=== PATIENT | male | born 1940 | race African-American/Black ===

== ENCOUNTER 2023-06-12 13:07 | Inpatient (IN) | payer OTHER, BC ==
[2023-06-12 16:12] LABS: BASO % 0.5 % (0-2.0); EOS % 0.5 % (0-4.5); HEMATOCRIT 30.2 % (35.4-49); HEMOGLOBIN 9.5 GM/dL (11.7-16.9); LYMPH % 24.3 % (8-40); MCH 22.7 pg (25.7-33.7); MCHC 31.6 g/dl (32.0-35.9); MEAN CELL VOLUME 71.8 fl (80-96); MEAN PLT VOLUME 9.8 fl (7.5-11.1); MONO % 4.6 % (3.8-10.2); NEUT % 70.1 % (42.8-82.8); PLATELET COUNT 236 10^3/uL (134-434); RDW 15.9 % (11.9-15.9); WHITE BLOOD COUNT 5.8 K/mm3 (4.0-10.0)
[2023-06-12] MEDS: SODIUM CHLORIDE 0.9% 500 ML INFUS.BAG IV ONE (16:15)
[2023-06-12 16:28] LABS: POTASSIUM 4.4 mmol/L (3.5-5.1)
[2023-06-12 16:31] LABS: ALBUMIN 3.1 g/dl (3.4-5.0); BLOOD UREA NITROGEN 17.8 mg/dL (7-18); CALCIUM 9.8 mg/dL (8.5-10.1); MAGNESIUM 1.7 mg/dL (1.8-2.4)
[2023-06-12 16:34] LABS: CREATININE 0.7 mg/dL (0.55-1.3); PHOSPHOROUS 2.8 mg/dL (2.5-4.9)
[2023-06-12 16:36] LABS: BILIRUBIN,TOTAL 0.4 mg/dL (0.2-1); TOT PROT 6.6 g/dl (6.4-8.2)
[2023-06-12 16:43] LABS: LACTIC ACID 2.4 mmol/L (0.4-2.0)
[2023-06-12 18:39] LABS: URINE APPEARANCE CLEAR; URINE BILIRUBIN NEGATIVE (NEGATIVE); URINE COLOR YELLOW; URINE GLUCOSE (UA) NEGATIVE (NEGATIVE); URINE KETONE TRACE (NEGATIVE); URINE LEUK ESTERASE NEGATIVE (NEGATIVE); URINE NITRITE NEGATIVE (NEGATIVE); URINE PROTEIN NEGATIVE (NEGATIVE); URINE UROBILINOGEN 0.2 mg/dL (0.2-1.0)
[2023-06-12] MEDS ORDERED: MAGNESIUM 1GM/D5W - 1 GM/100 ML IVPB IVPB ONE (20:30)
[2023-06-12] MEDS: MAGNESIUM 1GM/D5W - 1 GM/100 ML IVPB IVPB ONE (21:34)
[2023-06-12] MEDS: INSULIN ASPART SLIDING SCALE (NOVOLOG) 1 VIAL SQ SCH (22:20)
[2023-06-12 22:47] LABS: RETICULOCYTES 0.58 % (0.5-1.5)
[2023-06-12] MEDS: SODIUM CHLORIDE 1,000 ML IV SCH (23:32)
[2023-06-12] MEDS: REMDESIVIR 200 MG in SODIUM CHLORIDE 250 ML IVPB ONE (23:33)
[2023-06-13 07:21] LABS: POTASSIUM 3.9 mmol/L (3.5-5.1)
[2023-06-13 07:24] LABS: BASO % 0.6 % (0-2.0); EOS % 1.2 % (0-4.5); HEMATOCRIT 33.2 % (35.4-49); HEMOGLOBIN 10.4 GM/dL (11.7-16.9); LYMPH % 31.4 % (8-40); MCH 22.7 pg (25.7-33.7); MCHC 31.5 g/dl (32.0-35.9); MEAN CELL VOLUME 72.2 fl (80-96); MEAN PLT VOLUME 10.4 fl (7.5-11.1); MONO % 5.8 % (3.8-10.2); PLATELET COUNT 235 10^3/uL (134-434); RBC 4.59 M/mm3 (4.00-5.60); RDW 16.1 % (11.9-15.9); WHITE BLOOD COUNT 5.7 K/mm3 (4.0-10.0)
[2023-06-13 07:25] LABS: BLOOD UREA NITROGEN 12.9 mg/dL (7-18); MAGNESIUM 1.7 mg/dL (1.8-2.4)
[2023-06-13 07:26] LABS: ALBUMIN 3.3 g/dl (3.4-5.0); CALCIUM 8.8 mg/dL (8.5-10.1)
[2023-06-13 07:28] LABS: PHOSPHOROUS 2.8 mg/dL (2.5-4.9)
[2023-06-13 07:29] LABS: CREATININE 0.7 mg/dL (0.55-1.3)
[2023-06-13 07:30] LABS: BILIRUBIN,TOTAL 0.4 mg/dL (0.2-1); TOT PROT 6.4 g/dl (6.4-8.2)
[2023-06-13 07:37] LABS: CHOLESTEROL 99 mg/dL (50-200)
[2023-06-13 07:38] LABS: LDL CHOLESTEROL (ONLY SJRH) 51 mg/dL (5-100)
[2023-06-13 07:40] LABS: HDL CHOLESTEROL 44 mg/dL (40-60)
[2023-06-13] MEDS: ENOXAPARIN NA (PORCINE) 40 MG/0.4 ML DISP.SYRIN SQ SCH (11:04)
[2023-06-13] MEDS ORDERED: MAGNESIUM SULFATE IN WATER 2 GM/50 ML IVPB IVPB ONE (16:20)
[2023-06-13] MEDS: REMDESIVIR 100 MG in SODIUM CHLORIDE 250 ML IVPB SCH (16:28)
[2023-06-13] MEDS: MAGNESIUM SULF 50% (8.12 MEQ/2 ML-1 GM VIAL) IVPB ONE (16:30)
[2023-06-13] MEDS ORDERED: INSULIN (NOVOLOG) ASPART 100 UNITS/ML 10ML VIAL ONE (17:18)
[2023-06-13 19:01] VITALS: BMI 22.1
[2023-06-14 08:54] LABS: BASO % 1.2 % (0-2.0); EOS % 1.4 % (0-4.5); HEMOGLOBIN 9.5 GM/dL (11.7-16.9); LYMPH % 37.2 % (8-40); MCH 22.7 pg (25.7-33.7); MCHC 31.7 g/dl (32.0-35.9); MEAN CELL VOLUME 71.7 fl (80-96); MEAN PLT VOLUME 10.4 fl (7.5-11.1); MONO % 8.2 % (3.8-10.2); PLATELET COUNT 212 10^3/uL (134-434); RBC 4.19 M/mm3 (4.00-5.60); WHITE BLOOD COUNT 4.5 K/mm3 (4.0-10.0)
[2023-06-14] MEDS: MEMANTINE HCL 10 MG TABLET (FP) PO SCH (10:26)
[2023-06-14 10:31] LABS: ALBUMIN 2.9 g/dl (3.4-5.0); BLOOD UREA NITROGEN 10.6 mg/dL (7-18); CALCIUM 8.8 mg/dL (8.5-10.1); MAGNESIUM 1.8 mg/dL (1.8-2.4)
[2023-06-14 10:34] LABS: CREATININE 0.6 mg/dL (0.55-1.3); PHOSPHOROUS 2.8 mg/dL (2.5-4.9)
[2023-06-14 10:39] LABS: BILIRUBIN,TOTAL 0.4 mg/dL (0.2-1)
[2023-06-14] MEDS: SODIUM CHLORIDE 1,000 ML IV SCH (22:27)
[2023-06-14] MEDS: BACITRACIN ZINC 15 GM TUBE TOPICAL OINTMENT TP SCH (22:28)
[2023-06-15 08:23] LABS: BASO % 0.5 % (0-2.0); HEMATOCRIT 28.8 % (35.4-49); HEMOGLOBIN 9.3 GM/dL (11.7-16.9); LYMPH % 34.3 % (8-40); MCH 22.9 pg (25.7-33.7); MCHC 32.2 g/dl (32.0-35.9); MEAN CELL VOLUME 71.2 fl (80-96); MEAN PLT VOLUME 10.7 fl (7.5-11.1); MONO % 8.6 % (3.8-10.2); NEUT % 55.6 % (42.8-82.8); PLATELET COUNT 200 10^3/uL (134-434); RBC 4.05 M/mm3 (4.00-5.60); RDW 16.3 % (11.9-15.9); WHITE BLOOD COUNT 4.6 K/mm3 (4.0-10.0)
[2023-06-15 08:53] LABS: CALCIUM 8.5 mg/dL (8.5-10.1)
[2023-06-15 08:54] LABS: BLOOD UREA NITROGEN 11.9 mg/dL (7-18)
[2023-06-15 08:56] LABS: CREATININE 0.6 mg/dL (0.55-1.3)
[2023-06-15 08:58] LABS: BILIRUBIN,TOTAL 0.4 mg/dL (0.2-1); TOT PROT 5.8 g/dl (6.4-8.2)
[2023-06-15 09:02] LABS: CHOLESTEROL 82 mg/dL (50-200); LDL CHOLESTEROL (ONLY SJRH) 33 mg/dL (5-100)
[2023-06-15 09:04] LABS: HDL CHOLESTEROL 49 mg/dL (40-60)
[2023-06-16 08:06] LABS: ALBUMIN 2.8 g/dl (3.4-5.0); CALCIUM 8.3 mg/dL (8.5-10.1)
[2023-06-16 08:07] LABS: BASO % 0.5 % (0-2.0); EOS % 1.9 % (0-4.5); HEMATOCRIT 27.6 % (35.4-49); HEMOGLOBIN 8.8 GM/dL (11.7-16.9); LYMPH % 42.1 % (8-40); MCH 22.8 pg (25.7-33.7); MCHC 31.8 g/dl (32.0-35.9); MEAN CELL VOLUME 71.7 fl (80-96); MEAN PLT VOLUME 10.8 fl (7.5-11.1); MONO % 8.8 % (3.8-10.2); NEUT % 46.7 % (42.8-82.8); PLATELET COUNT 185 10^3/uL (134-434); RBC 3.86 M/mm3 (4.00-5.60); RDW 16.2 % (11.9-15.9)
[2023-06-16 08:44] LABS: BLOOD UREA NITROGEN 12.1 mg/dL (7-18)
[2023-06-16 08:45] LABS: MAGNESIUM 1.8 mg/dL (1.8-2.4)
[2023-06-16 08:47] LABS: CREATININE 0.6 mg/dL (0.55-1.3)
[2023-06-16 08:49] LABS: BILIRUBIN,TOTAL 0.3 mg/dL (0.2-1); TOT PROT 5.5 g/dl (6.4-8.2)
[2023-06-16] MEDS: SODIUM CHLORIDE 1,000 ML IV SCH (12:12)
[2023-06-17 08:32] LABS: POTASSIUM 3.8 mmol/L (3.5-5.1)
[2023-06-17 08:37] LABS: BASO % 0.9 % (0-2.0); EOS % 2.4 % (0-4.5); HEMATOCRIT 26.3 % (35.4-49); HEMOGLOBIN 8.4 GM/dL (11.7-16.9); LYMPH % 40.2 % (8-40); MCH 22.9 pg (25.7-33.7); MEAN CELL VOLUME 71.6 fl (80-96); MEAN PLT VOLUME 10.9 fl (7.5-11.1); MONO % 11.5 % (3.8-10.2); PLATELET COUNT 170 10^3/uL (134-434); RBC 3.68 M/mm3 (4.00-5.60); RDW 16.3 % (11.9-15.9); WHITE BLOOD COUNT 4.2 K/mm3 (4.0-10.0)
[2023-06-17 08:48] LABS: ALBUMIN 2.6 g/dl (3.4-5.0); BLOOD UREA NITROGEN 11.9 mg/dL (7-18); CALCIUM 8.4 mg/dL (8.5-10.1)
[2023-06-17 08:49] LABS: MAGNESIUM 1.7 mg/dL (1.8-2.4)
[2023-06-17 08:52] LABS: CREATININE 0.6 mg/dL (0.55-1.3)
[2023-06-17 08:53] LABS: BILIRUBIN,TOTAL 0.3 mg/dL (0.2-1); TOT PROT 5.4 g/dl (6.4-8.2)
[2023-06-17] MEDS: MAGNESIUM OXIDE 400 MG TABLET (FP) PO ONE (10:35)
[2023-06-18 07:44] LABS: BASO % 0.9 % (0-2.0); EOS % 2.3 % (0-4.5); HEMATOCRIT 25.3 % (35.4-49); HEMOGLOBIN 8.1 GM/dL (11.7-16.9); LYMPH % 37.3 % (8-40); MCH 22.9 pg (25.7-33.7); MCHC 32.2 g/dl (32.0-35.9); MEAN CELL VOLUME 71.2 fl (80-96); MEAN PLT VOLUME 10.8 fl (7.5-11.1); MONO % 10.2 % (3.8-10.2); NEUT % 49.3 % (42.8-82.8); PLATELET COUNT 160 10^3/uL (134-434); RBC 3.55 M/mm3 (4.00-5.60); RDW 16.6 % (11.9-15.9); WHITE BLOOD COUNT 3.7 K/mm3 (4.0-10.0)
[2023-06-18 07:59] LABS: POTASSIUM 4.1 mmol/L (3.5-5.1)
[2023-06-18 08:08] LABS: ALBUMIN 2.5 g/dl (3.4-5.0); CALCIUM 8.3 mg/dL (8.5-10.1); MAGNESIUM 1.8 mg/dL (1.8-2.4)
[2023-06-18 08:11] LABS: CREATININE 0.7 mg/dL (0.55-1.3)
[2023-06-18 08:12] LABS: BILIRUBIN,TOTAL 0.4 mg/dL (0.2-1); TOT PROT 5.1 g/dl (6.4-8.2)
[2023-06-18] MEDS: INSULIN ASPART SLIDING SCALE (NOVOLOG) 1 VIAL SQ SCH (12:02)
[2023-06-18 15:47] VITALS: BP 128/66; PULSE 70; RESP 15; TEMP 98.9
[2023-06-19] MEDS ORDERED: MEMANTINE HCL 10 MG TABLET (FP) PO SCH (10:00)
[2023-06-19] MEDS ORDERED: ENOXAPARIN NA (PORCINE) 40 MG/0.4 ML DISP.SYRIN SQ SCH (10:00)
== END 2023-06-18 17:16 | disposition home or self-care (01) | DRG 178 ==
LOC: JER 13:07 → JERBED 20:30 → OBSVTOIN 06-13 15:35 → J8W 06-13 18:02 → J4W 06-14 19:26
PROVIDERS: ADMIT Internal Medicine; ATTEND Nurse Practitioner Family
PROC: XW033E5 Introduction of Remdesivir Anti-infective into Peripheral Vein, Percutaneous Approach, New Technology Group 5 (ICD-10-PCS; principal; 2023-06-12)
DX: U07.1 COVID-19 (principal); I47.20 Ventricular tachycardia, unspecified; E11.9 Type 2 diabetes mellitus without complications; E86.0 Dehydration; R62.7 Adult failure to thrive; G30.9 Alzheimer's disease, unspecified; F02.80 Dementia in other diseases classified elsewhere, unspecified severity, without behavioral disturbance, psychotic disturbance, mood disturbance, and anxiety; D50.9 Iron deficiency anemia, unspecified; R55 Syncope and collapse; E83.42 Hypomagnesemia; Z79.84 Long term (current) use of oral hypoglycemic drugs
CPT/HCPCS: 0241U-QW; 36415; 70450-TC; 70551-TC; 71045-TC-FY; 80053; 80061; 81003; 82272; 82607; 82728; 82746; 82962; 83540; 83550; 83605; 83735; 84100; 84443; 84484; 85025; 85045; 87086; 93005; 93010; 93880-TC; 97116-GP; 97161-GP; 99285-25; G0378; J0248